=== PATIENT | female | born 1995 ===

== ENCOUNTER 2019-05-22 21:37 | Emergency (ER) | payer SELFPAY ==
--- NOTE | 2019-05-22 22:46 | EDM.PDOC ---
ED HPI GENERAL MEDICAL PROBLEM - General Chief Complaint: General Stated Complaint: SICK Time Seen by Provider: 05/22/19 22:40 Source of Information: Reports: Patient History Limitations: Reports: No Limitations - History of Present Illness INITIAL COMMENTS - FREE TEXT/NARRATIVE: Patient concern about her boyfriend's penile bleeding. Patient does not know whether she was bleeding and wants a discussion. Onset: Today Duration: Hour(s): Location: Reports: Other Improves with: Reports: None Worsens with: Reports: None Associated Symptoms: Reports: No Other Symptoms - Related Data Allergies Allergy/AdvReac Type Severity Reaction Status Date / Time No Known Allergies Allergy Verified 05/22/19 22:04 Home Meds: Home Meds . 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 Musculoskeletal History: Reports: None Neurological History: Reports: None Psychiatric History: Reports: None Endocrine/Metabolic History: Reports: None Hematologic History: Reports: None Immunologic History: Reports: None Oncologic (Cancer) History: Reports: None Dermatologic History: Reports: None - Infectious Disease History Infectious Disease History: Reports: None - Past Surgical History Head Surgeries/Procedures: Reports: None Social & Family History - Tobacco Use Smoking Status *Q: Never Smoker Second Hand Smoke Exposure: No - Caffeine Use Caffeine Use: Reports: None - Recreational Drug Use Recreational Drug Use: No ED ROS GENERAL - Review of Systems Review Of Systems: See Below Constitutional: Reports: No Symptoms HEENT: Reports: No Symptoms Respiratory: Reports: No Symptoms Cardiovascular: Reports: No Symptoms Endocrine: Reports: No Symptoms GI/Abdominal: Reports: No Symptoms : Reports: No Symptoms Musculoskeletal: Reports: No Symptoms Skin: Reports: No Symptoms Neurological: Reports: No Symptoms Psychiatric: Reports: No Symptoms Hematologic/Lymphatic: Reports: No Symptoms Immunologic: Reports: No Symptoms ED EXAM, GENERAL - Physical Exam Exam: See Below Free Text/Narrative:: Have discussed the case with the patient patient is not bleeding. Her boyfriend was bleeding and I have discussed this with her. Exam Limited By: No Limitations General Appearance: Alert, WD/WN, No Apparent Distress Ears: Normal External Exam, Normal TMs Nose: Normal Inspection Throat/Mouth: Normal Inspection Head: Atraumatic Respiratory/Chest: No Respiratory Distress Cardiovascular: Normal Peripheral Pulses, No JVD (Female) Exam: Other (No reason to examine patient.) Course - Vital Signs Text/Narrative:: No treatment needed at this time. Last Recorded V/S: Last Vital Signs Temp 97.8 F 05/22/19 22:00 Pulse 70 05/22/19 22:00 Resp 18 05/22/19 22:00 BP 120/70 05/22/19 22:00 Pulse Ox 97 05/22/19 22:00 Departure - Departure Time of Disposition: 22:47 Disposition: Home, Self-Care 01 Condition: Good Clinical Impression: Exposure to blood or body fluid - Discharge Information Referrals: PCP,None [Primary Care Provider] - Sepsis Event Note - Evaluation Sepsis Screening Result: No Definite Risk - Focused Exam Vital Signs: Vital Signs Temp Pulse Resp BP Pulse Ox 05/22/19 22:00 97.8 F 70 18 120/70 97 Date Exam was Performed: 05/22/19 Time Exam was Performed: 22:40
== END 2019-05-22 23:00 | disposition home or self-care (01) ==
LOC: MW.ED 21:37
DX: Z77.21 Contact with and (suspected) exposure to potentially hazardous body fluids (principal)
CPT/HCPCS: 99283

== ENCOUNTER 2020-03-10 12:44 | Inpatient (IN) | payer SELFPAY ==
[2020-03-10] MEDS ORDERED: Misoprostol 200 MCG Tab PO PRN (12:53)
[2020-03-10] MEDS ORDERED: Sodium Chloride 0.9% 10 ML Syringe FLUSH PRN (12:53)
[2020-03-10] MEDS ORDERED: Sodium Chloride 0.9% 2.5 ML Syringe FLUSH PRN (12:53)
[2020-03-10] MEDS ORDERED: Sodium Chloride 0.9% 10 ML SDV IV PRN (12:53)
[2020-03-10] MEDS ORDERED: Lidocaine 1% 50 ML MDV INJECT PRN (12:53)
[2020-03-10] MEDS ORDERED: Nalbuphine 10 MG/1 ML Vial IVPUSH PRN (12:53)
[2020-03-10] MEDS ORDERED: Carboprost Tromethamine 250 MCG/1 ML Amp IM PRN (12:53)
[2020-03-10] MEDS ORDERED: Water For Irrigation,Sterile 1,000 ML Container IRR PRN (12:53)
[2020-03-10] MEDS ORDERED: Methylergonovine 0.2 MG/1 ML Amp IM PRN (12:53)
[2020-03-10] MEDS ORDERED: Tranexamic Acid 1,000 MG in Sodium Chloride 0.9% 100 ML IV PRN (12:53)
[2020-03-10] MEDS ORDERED: Butorphanol 1 MG/ML SDV IVPUSH PRN (12:53)
[2020-03-10] MEDS ORDERED: Lactated Ringers 1,000 ML IV SCH (13:00)
[2020-03-10] MEDS ORDERED: Oxytocin/0.9 % Sodium Chloride 30 UNIT/500 ML BAG IV SCH ×2 (13:00→13:15)
[2020-03-10] MEDS ORDERED: Misoprostol 25 MCG (1/4 of 100 MCG) Tab VAG PRN ×2 (13:01)
[2020-03-10] MEDS ORDERED: Terbutaline 1 MG/ML SDV SUBCUT PRN (13:01)
[2020-03-10] MEDS ORDERED: Misoprostol 25 MCG (1/4 of 100 MCG) Tab PO ONE (13:03)
--- NOTE | 2020-03-10 16:40 | PCM.LDHP ---
L&D History of Present Illness - General Date of Service: 03/10/20 Admit Problem/Dx: Patient Status Order with Admit Dx/Problem 03/10/20 12:53 Patient Status [ADT] Routine Admission Diagnosis/Problem Admission Diagnosis/Problem 03/10/20 16:35 presenting to L&D for elective IOL at 40 1/7 weeks (CECILIO: 03/09/20); O+, Rubella immune, GBS negative; vertex presentation by Radu'charlee SVE 2-3cm/50%/- 3, soft midposition per nurse report Source of Information: Patient History Limitations: Reports: No Limitations - Related Data Allergies/Adverse Reactions: Allergies Allergy/AdvReac Type Severity Reaction Status Date / Time No Known Allergies Allergy Verified 03/08/20 10:11 Home Medications: Home Meds . 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: Musculoskeletal History: Reports: None Neurological History: Reports: None Psychiatric History: Reports: None Endocrine/Metabolic History: Reports: None Hematologic History: Reports: None Immunologic History: Reports: None Oncologic (Cancer) History: Reports: None Dermatologic History: Reports: None - Infectious Disease History Infectious Disease History: Reports: Chicken Pox - Past Surgical History Head Surgeries/Procedures: Reports: None Social & Family History - Family History HEENT: Reports: Hearing Impairment Cardiac: Reports: None Respiratory: Reports: Asthma GI: Reports: None OBGYN: Reports: Musculoskeletal: Reports: None Neurological: Reports: None Psychiatric: Reports: None Endocrine/Metabolic: Reports: Diabetes, type II Hematologic: Reports: None Oncologic: Reports: None - Tobacco Use Tobacco Use Status *Q: Never Tobacco User Second Hand Smoke Exposure: No - Caffeine Use Caffeine Use: Reports: None - Recreational Drug Use Recreational Drug Use: No H&P Review of Systems - Review of Systems: Review Of Systems: See Below General: Reports: No Symptoms HEENT: Reports: No Symptoms Pulmonary: Reports: No Symptoms Cardiovascular: Reports: No Symptoms Gastrointestinal: Reports: No Symptoms Genitourinary: Reports: No Symptoms Musculoskeletal: Reports: No Symptoms Skin: Reports: No Symptoms Psychiatric: Reports: No Symptoms Neurological: Reports: No Symptoms Hematologic/Lymphatic: Reports: No Symptoms Immunologic: Reports: No Symptoms L&D Exam - Exam Exam: See Below - Vital Signs Weight: 185 lb - OB Specific Movement: Active Heart Tones: Present Heart Rate (FHR) Variability: Moderate (6-25 bmp) Presentation: Vertex - Dia Score Dia Score Cervix Position: Midposition Dia Score Consistency: Soft Dia Score Effacement: 31-50% Dia Score Dilation: 1-2 cm Dia Score 's Station: -3 Dia Score Total: 5 - Exam General: Alert, Oriented, Cooperative Lungs: Normal Respiratory Effort Cardiovascular: Regular Rate, Regular Rhythm GI/Abdominal Exam: Soft, Non-Tender Rectal Exam: Deferred Genitourinary: Deferred Back Exam: Normal Inspection Extremities: Normal Inspection, Normal Range of Motion, Non-Tender, Normal Capillary Refill Skin: Warm, Dry, Intact Neurological: Strength Equal Bilateral, Normal Gait, Normal Speech, Normal Tone, Sensation Intact Psychiatric: Alert, Normal Affect, Normal Mood - Patient Data Lab Results Last 24 hrs: Laboratory Results - last 24 hr 03/10/20 03/10/20 Range/Units 13:20 13:20 WBC 10.43 (4.0-11.0) K/uL RBC 4.04 L (4.30-5.90) M/uL Hgb 10.9 L (12.0-16.0) g/dL Hct 34.0 L (36.0-46.0) % MCV 84.2 (80.0-98.0) fL MCH 27.0 (27.0-32.0) pg MCHC 32.1 (31.0-37.0) g/dL RDW Std Deviation 37.5 (28.0-62.0) fl RDW Coeff of Chi 12 (11.0-15.0) % Plt Count 186 (150-400) K/uL MPV 12.60 H (7.40-12.00) fL Nucleated RBC % 0.0 /100WBC Nucleated RBCs # 0 K/uL Blood Type O POSITIVE Antibody Screen NEGATIVE Result Diagrams: 03/10/20 13:20 - Problem List (1) Supervision of normal IUP (intrauterine ) in multigravida SNOMED Code(s): 556978649, 563772082, 285811039 ICD Code: Z34.80 - ENCOUNTER FOR SUPRVSN OF NORMAL , UNSP TRIMESTER Status: Acute Priority: High Current Visit: Yes Qualifiers: Trimester: third trimester Qualified Code(s): Z34.83 - Encounter for supervision of other normal , third trimester Problem List Initiated/Reviewed/Updated: Yes Orders Last 24hrs: Active Orders 24 hr Category Date Time Status Patient Status [ADT] Routine ADT 03/10/20 12:53 Active Bedrest Bathroom Privileges [RC] ASDIRECTED Care 03/10/20 13:02 Active Communication Order [RC] ASDIRECTED Care 03/10/20 13:02 Active Communication Order [RC] ASDIRECTED Care 03/10/20 13:02 Active Communication Order [RC] ASDIRECTED Care 03/10/20 13:02 Active Heart Tones [RC] CONTINUOUS Care 03/10/20 12:53 Active Non Stress Test [RC] PER UNIT ROUTINE Care 03/10/20 12:53 Active May Shower [RC] ASDIRECTED Care 03/10/20 12:53 Active Notify Provider [RC] PRN Care 03/10/20 12:53 Active Notify Provider [RC] PRN Care 03/10/20 13:02 Active Notify Provider [RC] PRN Care 03/10/20 13:02 Active Notify Provider [RC] STAT Care 03/10/20 13:02 Active Up ad Zita [RC] ASDIRECTED Care 03/10/20 12:53 Active Vaginal Exam [RC] PRN Care 03/10/20 12:53 Active Vaginal Exam [RC] PRN Care 03/10/20 13:02 Active Vital Signs [RC] PER UNIT ROUTINE Care 03/10/20 12:53 Active Regular Diet [DIET] Diet 03/10/20 Lunch Active RPR (SYPHILIS SERO) W/ RFLX [REF] Routine Lab 03/10/20 13:20 Received Butorphanol [Stadol] Med 03/10/20 12:53 Active 1 mg IVPUSH Q1H PRN Carboprost Tromethamine [Hemabate DS] Med 03/10/20 12:53 Active 250 mcg IM ASDIRECTED PRN Lactated Ringers [Ringers, Lactated] 1,000 ml Med 03/10/20 13:00 Active IV ASDIRECTED Lidocaine 1% [Xylocaine 1%] Med 03/10/20 12:53 Active 50 ml INJECT ONETIME PRN Methylergonovine [Methergine] Med 03/10/20 12:53 Active 0.2 mg IM ASDIRECTED PRN Nalbuphine [Nubain] Med 03/10/20 12:53 Active 10 mg IVPUSH Q1H PRN Oxytocin/0.9 % Sodium Chloride [Oxytocin 30 Unit/500 ML Med 03/10/20 13:00 Active -NS] 30 unit in 500 ml IV TITRATE Oxytocin/0.9 % Sodium Chloride [Oxytocin 30 Unit/500 ML Med 03/10/20 13:15 Active -NS] 30 unit in 500 ml IV TITRATE Sodium Chloride 0.9% [Normal Saline] Med 03/10/20 12:53 Active 10 ml IV ASDIRECTED PRN Sodium Chloride 0.9% [Saline Flush] Med 03/10/20 12:53 Active 10 ml FLUSH ASDIRECTED PRN Sodium Chloride 0.9% [Saline Flush] Med 03/10/20 12:53 Active 2.5 ml FLUSH ASDIRECTED PRN Terbutaline [Brethine] Med 03/10/20 13:01 Active 0.25 mg SUBCUT ASDIRECTED PRN Tranexamic Acid [Cyklokapron] 1,000 mg Med 03/10/20 12:53 Active Sodium Chloride 0.9% [Normal Saline] 100 ml IV ONETIME Water For Irrigation,Sterile [Sterile Water for Med 03/10/20 12:53 Active Irrigation] 1,000 ml IRR ASDIRECTED PRN miSOPROStoL [Cytotec] Med 03/10/20 12:53 Active 200 mcg PO ONETIME PRN miSOPROStoL [Cytotec] Med 03/10/20 13:01 Active 25 mcg VAG ONETIME PRN miSOPROStoL [Cytotec] Med 03/10/20 13:01 Active 25 mcg VAG Q4H PRN Scalp Electrode [WOMSER] Per Unit Routine Oth 03/10/20 12:53 Ordered Medication Administration Instruction [OM.PC] Q3H Oth 03/10/20 13:15 Ordered Peripheral IV Insertion Adult [OM.PC] Routine Oth 03/10/20 12:53 Ordered Resuscitation Status Routine Resus Stat 03/10/20 12:53 Ordered Medication Orders Butorphanol Tartrate (Stadol) 1 mg IVPUSH Q1H PRN PRN Reason: Pain Carboprost Tromethamine (Hemabate Ds) 250 mcg IM ASDIRECTED PRN PRN Reason: Post Hemorrhage Oxytocin/Sodium Chloride (Oxytocin 30 Unit/500 Ml-Ns) 30 unit in 500 mls @ 500 mls/hr IV TITRATE JOSH Tranexamic Acid 1,000 mg/ (Sodium Chloride) 110 mls @ 660 mls/hr IV ONETIME PRN PRN Reason: Bleeding Lactated Ringer's (Ringers, Lactated) 1,000 mls @ 150 mls/hr IV ASDIRECTED JOSH Oxytocin/Sodium Chloride (Oxytocin 30 Unit/500 Ml-Ns) 30 unit in 500 mls @ 2 mls/hr IV TITRATE JOSH; Protocol Lidocaine HCl (Xylocaine 1%) 50 ml INJECT ONETIME PRN PRN Reason: Laceration repair Methylergonovine Maleate (Methergine) 0.2 mg IM ASDIRECTED PRN PRN Reason: Post Hemorrhage Misoprostol (Cytotec) 200 mcg PO ONETIME PRN PRN Reason: Post Hemorrhage Misoprostol (Cytotec) 25 mcg VAG ONETIME PRN PRN Reason: Cervical Ripening Last Admin: 03/10/20 13:42 Dose: 25 mcg Documented by: CELY Misoprostol (Cytotec) 25 mcg VAG Q4H PRN PRN Reason: Cervical Ripening Nalbuphine HCl (Nubain) 10 mg IVPUSH Q1H PRN PRN Reason: Pain (severe 7-10) Sodium Chloride (Saline Flush) 10 ml FLUSH ASDIRECTED PRN PRN Reason: Keep Vein Open Sodium Chloride (Saline Flush) 2.5 ml FLUSH ASDIRECTED PRN PRN Reason: Keep Vein Open Sodium Chloride (Normal Saline) 10 ml IV ASDIRECTED PRN PRN Reason: IV Use Sterile Water (Sterile Water For Irrigation) 1,000 ml IRR ASDIRECTED PRN PRN Reason: delivery Terbutaline Sulfate (Brethine) 0.25 mg SUBCUT ASDIRECTED PRN PRN Reason: Tacysystole Assessment/Plan Comment:: Admit A: presenting to L&D for elective IOL at 40 1/7 weeks (CECILIO: 03/09/20); O+, Rubella immune, GBS negative; vertex presentation by Radu's, SVE 2-3cm/50%/-3, soft midposition per nurse report; hx of fast labor P: Anticipate ; Epidural PRN; Dr. Carrasquillo updated.
--- NOTE | 2020-03-10 18:34 | PCM.DEL ---
L & D Note - General Info Date of Service: 03/10/20 Mother's Due Date: 03/09/20 - Delivery Note Cervical Ripening Method: Misoprostil Delivery Outcome: Livebirth Infant Delivery Method: Spontaneous Vaginal Delivery-Single Presentation: Vertex Nuchal Cord: None Anesthesia Type: None Laceration: None Placenta: Intact, Spontaneous Cord: 3 Vessels Estimated Blood Loss: 250 Resuscitation Needed: No Score 1 min: 8 Score 5 min: 9 Second Stage Interventions: Reports: Other (see below) (precipitous delivery) Delivery Comments (Free Text/Narrative):: AROM clear at 1629; SVE by this miller head wet process at that time was 4-5 cm/90%/-1, soft, and midposition; progressed to complete approximately 1.5 hours later and delivered precipitously in bed with nurse as this miller head wet process was en route to hospital; viable female; APGARs 8/9; weight 7 lb 14 oz; cord doubly clamped, cut by FOB at approximately 5 minutes ; placenta delivered grossly intact, mendoza; 3VC; EBL 250 mL; perineum intact; pitocin to IVF; mom and baby left in stable condition with nurse at bedside - General Info Date of Service: 03/10/20 Admission Dx/Problem (Free Text): Patient Status Order with Admit Dx/Problem 03/10/20 12:53 Patient Status [ADT] Routine Admission Diagnosis/Problem Admission Diagnosis/Problem 03/10/20 16:35 presenting to L&D for elective IOL at 40 1/7 weeks (CECILIO: 03/09/20); O+, Rubella immune, GBS negative; vertex presentation by Radu's, SVE 2-3cm/50%/-3, soft midposition per nurse report Functional Status: Reports: Pain Controlled - Review of Systems General: Reports: No Symptoms HEENT: Reports: No Symptoms Pulmonary: Reports: No Symptoms Cardiovascular: Reports: No Symptoms Gastrointestinal: Reports: No Symptoms Genitourinary: Reports: No Symptoms Musculoskeletal: Reports: No Symptoms Skin: Reports: No Symptoms Neurological: Reports: No Symptoms Psychiatric: Reports: No Symptoms - Patient Data Weight - Most Recent: 185 lb Lab Results Last 24 Hours: Laboratory Results - last 24 hr 03/10/20 03/10/20 Range/Units 13:20 13:20 WBC 10.43 (4.0-11.0) K/uL RBC 4.04 L (4.30-5.90) M/uL Hgb 10.9 L (12.0-16.0) g/dL Hct 34.0 L (36.0-46.0) % MCV 84.2 (80.0-98.0) fL MCH 27.0 (27.0-32.0) pg MCHC 32.1 (31.0-37.0) g/dL RDW Std Deviation 37.5 (28.0-62.0) fl RDW Coeff of Chi 12 (11.0-15.0) % Plt Count 186 (150-400) K/uL MPV 12.60 H (7.40-12.00) fL Nucleated RBC % 0.0 /100WBC Nucleated RBCs # 0 K/uL Blood Type O POSITIVE Antibody Screen NEGATIVE Med Orders - Current: Current Medications Butorphanol Tartrate (Stadol) 1 mg IVPUSH Q1H PRN PRN Reason: Pain Carboprost Tromethamine (Hemabate Ds) 250 mcg IM ASDIRECTED PRN PRN Reason: Post Hemorrhage Oxytocin/Sodium Chloride (Oxytocin 30 Unit/500 Ml-Ns) 30 unit in 500 mls @ 500 mls/hr IV TITRATE JOSH Tranexamic Acid 1,000 mg/ (Sodium Chloride) 110 mls @ 660 mls/hr IV ONETIME PRN PRN Reason: Bleeding Lactated Ringer's (Ringers, Lactated) 1,000 mls @ 150 mls/hr IV ASDIRECTED JOSH Oxytocin/Sodium Chloride (Oxytocin 30 Unit/500 Ml-Ns) 30 unit in 500 mls @ 2 mls/hr IV TITRATE JOSH; Protocol Lidocaine HCl (Xylocaine 1%) 50 ml INJECT ONETIME PRN PRN Reason: Laceration repair Methylergonovine Maleate (Methergine) 0.2 mg IM ASDIRECTED PRN PRN Reason: Post Hemorrhage Misoprostol (Cytotec) 200 mcg PO ONETIME PRN PRN Reason: Post Hemorrhage Misoprostol (Cytotec) 25 mcg VAG ONETIME PRN PRN Reason: Cervical Ripening Last Admin: 03/10/20 13:42 Dose: 25 mcg Documented by: Misoprostol (Cytotec) 25 mcg VAG Q4H PRN PRN Reason: Cervical Ripening Nalbuphine HCl (Nubain) 10 mg IVPUSH Q1H PRN PRN Reason: Pain (severe 7-10) Sodium Chloride (Saline Flush) 10 ml FLUSH ASDIRECTED PRN PRN Reason: Keep Vein Open Sodium Chloride (Saline Flush) 2.5 ml FLUSH ASDIRECTED PRN PRN Reason: Keep Vein Open Sodium Chloride (Normal Saline) 10 ml IV ASDIRECTED PRN PRN Reason: IV Use Sterile Water (Sterile Water For Irrigation) 1,000 ml IRR ASDIRECTED PRN PRN Reason: delivery Terbutaline Sulfate (Brethine) 0.25 mg SUBCUT ASDIRECTED PRN PRN Reason: Tacysystole Discontinued Medications Misoprostol (Cytotec) 25 mcg PO ONETIME ONE Stop: 03/10/20 13:04 Last Admin: 03/10/20 13:41 Dose: 25 mcg Documented by: - Exam General: Alert, Oriented, Cooperative, No Acute Distress Lungs: Normal Respiratory Effort Cardiovascular: Regular Rate, Regular Rhythm GI/Abdominal Exam: Soft, Non-Tender (Female) Exam: Normal External Exam Back Exam: Normal Inspection, Full Range of Motion Extremities: Normal Inspection, Normal Range of Motion, Non-Tender, Normal Capillary Refill Skin: Warm, Dry, Intact Neurological: No New Focal Deficit, Normal Gait, Normal Speech, Normal Tone, Strength Equal Bilateral, Sensation Intact Psy/Mental Status: Alert, Normal Affect, Normal Mood - Problem List & Annotations (1) Supervision of normal IUP (intrauterine ) in multigravida SNOMED Code(s): 530841749, 281721874, 500384274 Code(s): Z34.80 - ENCOUNTER FOR SUPRVSN OF NORMAL , UNSP TRIMESTER Status: Acute Priority: High Current Visit: Yes Qualifiers: Trimester: third trimester Qualified Code(s): Z34.83 - Encounter for supervision of other normal , third trimester (2) (spontaneous vaginal delivery) SNOMED Code(s): 938275040 Code(s): O80 - ENCOUNTER FOR FULL-TERM UNCOMPLICATED DELIVERY Status: Acute Priority: High Current Visit: Yes - Problem List Review Problem List Initiated/Reviewed/Updated: No - My Orders Last 24 Hours: My Active Orders 03/10/20 Lunch Regular Diet [DIET] 03/10/20 12:53 Heart Tones [RC] CONTINUOUS Non Stress Test [RC] PER UNIT ROUTINE May Shower [RC] ASDIRECTED Notify Provider [RC] PRN Up ad Zita [RC] ASDIRECTED Vaginal Exam [RC] PRN Vital Signs [RC] PER UNIT ROUTINE Butorphanol [Stadol] 1 mg IVPUSH Q1H PRN Carboprost Tromethamine [Hemabate DS] 250 mcg IM ASDIRECTED PRN Lidocaine 1% [Xylocaine 1%] 50 ml INJECT ONETIME PRN Methylergonovine [Methergine] 0.2 mg IM ASDIRECTED PRN Nalbuphine [Nubain] 10 mg IVPUSH Q1H PRN Sodium Chloride 0.9% [Normal Saline] 10 ml IV ASDIRECTED PRN Sodium Chloride 0.9% [Saline Flush] 10 ml FLUSH ASDIRECTED PRN Sodium Chloride 0.9% [Saline Flush] 2.5 ml FLUSH ASDIRECTED PRN Tranexamic Acid [Cyklokapron] 1,000 mg Sodium Chloride 0.9% [Normal Saline] 100 ml IV ONETIME Water For Irrigation,Sterile [Sterile Water for Irrigation] 1,000 ml IRR ASDIRECTED PRN miSOPROStoL [Cytotec] 200 mcg PO ONETIME PRN Scalp Electrode [WOMSER] Per Unit Routine Peripheral IV Insertion Adult [OM.PC] Routine Resuscitation Status Routine 03/10/20 13:00 Lactated Ringers [Ringers, Lactated] 1,000 ml IV ASDIRECTED Oxytocin/0.9 % Sodium Chloride [Oxytocin 30 Unit/500 ML-NS] 30 unit in 500 ml IV TITRATE 03/10/20 13:01 Terbutaline [Brethine] 0.25 mg SUBCUT ASDIRECTED PRN miSOPROStoL [Cytotec] 25 mcg VAG ONETIME PRN miSOPROStoL [Cytotec] 25 mcg VAG Q4H PRN 03/10/20 13:02 Bedrest Bathroom Privileges [RC] ASDIRECTED Communication Order [RC] ASDIRECTED Communication Order [RC] ASDIRECTED Communication Order [RC] ASDIRECTED Notify Provider [RC] PRN Notify Provider [RC] PRN Notify Provider [RC] STAT Vaginal Exam [RC] PRN 03/10/20 13:15 Oxytocin/0.9 % Sodium Chloride [Oxytocin 30 Unit/500 ML-NS] 30 unit in 500 ml IV TITRATE Medication Administration Instruction [OM.PC] Q3H 03/10/20 13:20 RPR (SYPHILIS SERO) W/ RFLX [REF] Routine - Plan Plan:: Admit A: presenting to L&D for elective IOL at 40 1/7 weeks (CECILIO: 03/09/20); O+, Rubella immune, GBS negative; vertex presentation by Radu's, SVE 2-3cm/50%/-3, soft midposition per nurse report; hx of fast labor P: Anticipate ; Epidural PRN; Dr. Carrasquillo updated. Delivery A: viable femlae; delivered precipitously in bed with nurse as this miller head wet process was en route to hospital; APGARs 8/9; weight 7 lb 14 oz; cord doubly clamped, cut by FOB at approximately 5 minutes ; placenta delivered grossly intact, mendoza; 3VC; EBL 250 mL; perineum intact; pitocin to IVF; mom and baby left in stable condition with nurse at bedside P: Routine plan of care; Dr. Carrasquillo updated.
[2020-03-10] MEDS ORDERED: Witch Hazel Medicated Pads 40/Jar TOP PRN (18:37)
[2020-03-10] MEDS ORDERED: Bisacodyl 10 MG Supp RECTAL PRN (18:37)
[2020-03-10] MEDS ORDERED: Ibuprofen 800 MG Tab PO PRN (18:37)
[2020-03-10] MEDS ORDERED: Acetaminophen 500 MG Tab PO PRN ×2 (18:37)
[2020-03-10] MEDS ORDERED: Docusate Sodium 100 MG Cap PO PRN (18:37)
[2020-03-10] MEDS ORDERED: Benzocaine/Menthol 20%-0.5% Spray 78 GM Cannister TOP PRN (18:37)
[2020-03-10] MEDS ORDERED: Ibuprofen 400 MG Tab PO PRN (18:37)
[2020-03-10] MEDS ORDERED: oxyCODONE 5 MG Tab PO PRN (18:37)
[2020-03-10] MEDS ORDERED: Lanolin 100% Cream 7 GM Tube TOP PRN (18:37)
--- NOTE | 2020-03-11 10:08 | PCM.DCSUM1 ---
Discharge Summary - Hospital Course Free Text/Narrative:: Discharge home with ; follow up in the clinic in 6 weeks for routine visit; sooner, if needed. Diagnosis: Stroke: No Modified [place] Scale: No Symptoms at All Modified Brijesh Scale Score: 0 - Discharge Data Discharge Date: 03/11/20 Discharge Disposition: Home, Self-Care 01 Condition: Good - Referral to Home Health Primary Care Physician: PCP None - Discharge Diagnosis/Problem(s) (1) Supervision of normal IUP (intrauterine ) in multigravida SNOMED Code(s): 073530273, 712465270, 311650776 ICD Code: Z34.80 - ENCOUNTER FOR SUPRVSN OF NORMAL , UNSP TRIMESTER Status: Acute Priority: High Current Visit: Yes Qualifiers: Trimester: third trimester Qualified Code(s): Z34.83 - Encounter for supervision of other normal , third trimester (2) (spontaneous vaginal delivery) SNOMED Code(s): 316695245 ICD Code: O80 - ENCOUNTER FOR FULL-TERM UNCOMPLICATED DELIVERY Status: Acute Priority: High Current Visit: Yes - Patient Instructions Diet: Usual Diet as Tolerated, Regular Diet as Tolerated, Drink 8-10+ Glasses/Day Activity: As Tolerated, No Strenuous Activities, Rest and Relax Today Driving: May Drive Today Showering/Bathing: May Shower Notify Provider of: Fever, Increased Pain, Swelling and Redness, Drainage, Nausea and/or Vomiting - Discharge Plan *PRESCRIPTION DRUG MONITORING PROGRAM REVIEWED*: Not Applicable *COPY OF PRESCRIPTION DRUG MONITORING REPORT IN PATIENT REZA: Not Applicable Prescriptions/Med Rec: Lanolin [Lansinoh HPA] 1 tube TOP ASDIRECTED PRN #1 tube PRN Reason: Sore Nipples Ibuprofen [Motrin] 800 mg PO Q6H PRN #90 tablet PRN Reason: Pain Home Medications: Home Meds Ibuprofen [Motrin] 800 mg PO Q6H PRN #90 tablet 03/11/20 [Rx] Lanolin [Lansinoh HPA] 1 tube TOP ASDIRECTED PRN #1 tube 03/11/20 [Rx] Oxygen Therapy Mode: Room Air - Discharge Summary/Plan Comment DC Time >30 min.: Yes - General Info Date of Service: 03/11/20 Admission Dx/Problem (Free Text: Patient Status Order with Admit Dx/Problem 03/10/20 12:53 Patient Status [ADT] Routine Admission Diagnosis/Problem Admission Diagnosis/Problem 03/10/20 16:35 presenting to L&D for elective IOL at 40 1/7 weeks (CECILIO: 03/09/20); O+, Rubella immune, GBS negative; vertex presentation by [place], SVE 2-3cm/50%/-3, soft midposition per nurse report Functional Status: Reports: Pain Controlled, Tolerating Diet, Ambulating, Urinating - Review of Systems General: Reports: No Symptoms HEENT: Reports: No Symptoms Pulmonary: Reports: No Symptoms Cardiovascular: Reports: No Symptoms Gastrointestinal: Reports: No Symptoms Genitourinary: Reports: No Symptoms Musculoskeletal: Reports: No Symptoms Skin: Reports: No Symptoms Neurological: Reports: No Symptoms Psychiatric: Reports: No Symptoms - Patient Data Vitals - Most Recent: Last Vital Signs Temp 98.2 F 03/11/20 07:58 Pulse 73 03/11/20 07:58 Resp 15 03/11/20 07:58 BP 116/62 03/11/20 07:58 Pulse Ox 98 03/11/20 07:58 Weight - Most Recent: 185 lb Lab Results - Last 24 hrs: Laboratory Results - last 24 hr 03/10/20 03/10/20 03/11/20 Range/Units 13:20 13:20 06:15 WBC 10.43 (4.0-11.0) K/uL RBC 4.04 L (4.30-5.90) M/uL Hgb 10.9 L 10.9 L (12.0-16.0) g/dL Hct 34.0 L 33.2 L (36.0-46.0) % MCV 84.2 (80.0-98.0) fL MCH 27.0 (27.0-32.0) pg MCHC 32.1 (31.0-37.0) g/dL RDW Std Deviation 37.5 (28.0-62.0) fl RDW Coeff of Chi 12 (11.0-15.0) % Plt Count 186 (150-400) K/uL MPV 12.60 H (7.40-12.00) fL Nucleated RBC % 0.0 /100WBC Nucleated RBCs # 0 K/uL Blood Type O POSITIVE Antibody Screen NEGATIVE Med Orders - Current: Current Medications Acetaminophen (Tylenol Extra Strength) 500 mg PO Q4H PRN PRN Reason: Pain Acetaminophen (Tylenol Extra Strength) 1,000 mg PO Q4H PRN PRN Reason: Pain Benzocaine/Menthol (Dermoplast Pain Relief 20%-0.5% [place]) 78 gm TOP ASDIRECTED PRN PRN Reason: Perineal Comfort Measure Bisacodyl (Dulcolax) 10 mg RECTAL ONETIME PRN PRN Reason: Constipation Docusate Sodium (Colace) 100 mg PO BID PRN PRN Reason: Constipation Emollient Ointment (Lansinoh Hpa) 0 gm TOP ASDIRECTED PRN PRN Reason: Sore Nipples Ibuprofen (Motrin) 400 mg PO Q4H PRN PRN Reason: Pain Ibuprofen (Motrin) 800 mg PO Q6H PRN PRN Reason: Pain Oxycodone HCl (Oxycodone) 5 mg PO Q2H PRN PRN Reason: Pain Witch Maria Esther (Tucks) 1 pad TOP ASDIRECTED PRN PRN Reason: comfort care Discontinued Medications Butorphanol Tartrate (Stadol) 1 mg IVPUSH Q1H PRN PRN Reason: Pain Carboprost Tromethamine (Hemabate Ds) 250 mcg IM ASDIRECTED PRN PRN Reason: Post Hemorrhage Oxytocin/Sodium Chloride (Oxytocin 30 Unit/500 Ml-Ns) 30 unit in 500 mls @ 500 mls/hr IV TITRATE JOSH Tranexamic Acid 1,000 mg/ (Sodium Chloride) 110 mls @ 660 mls/hr IV ONETIME PRN PRN Reason: Bleeding Lactated Ringer's (Ringers, Lactated) 1,000 mls @ 150 mls/hr IV ASDIRECTED JOSH Oxytocin/Sodium Chloride (Oxytocin 30 Unit/500 Ml-Ns) 30 unit in 500 mls @ 2 mls/hr IV TITRATE JOSH; Protocol Lidocaine HCl (Xylocaine 1%) 50 ml INJECT ONETIME PRN PRN Reason: Laceration repair Methylergonovine Maleate (Methergine) 0.2 mg IM ASDIRECTED PRN PRN Reason: Post Hemorrhage Misoprostol (Cytotec) 200 mcg PO ONETIME PRN PRN Reason: Post Hemorrhage Misoprostol (Cytotec) 25 mcg VAG ONETIME PRN PRN Reason: Cervical Ripening Last Admin: 03/10/20 13:42 Dose: 25 mcg Documented by: Misoprostol (Cytotec) 25 mcg VAG Q4H PRN PRN Reason: Cervical Ripening Misoprostol (Cytotec) 25 mcg PO ONETIME ONE Stop: 03/10/20 13:04 Last Admin: 03/10/20 13:41 Dose: 25 mcg Documented by: Nalbuphine HCl (Nubain) 10 mg IVPUSH Q1H PRN PRN Reason: Pain (severe 7-10) Sodium Chloride (Saline Flush) 10 ml FLUSH ASDIRECTED PRN PRN Reason: Keep Vein Open Sodium Chloride (Saline Flush) 2.5 ml FLUSH ASDIRECTED PRN PRN Reason: Keep Vein Open Sodium Chloride (Normal Saline) 10 ml IV ASDIRECTED PRN PRN Reason: IV Use Sterile Water (Sterile Water For Irrigation) 1,000 ml IRR ASDIRECTED PRN PRN Reason: delivery Terbutaline Sulfate (Brethine) 0.25 mg SUBCUT ASDIRECTED PRN PRN Reason: Tacysystole - Exam General: Reports: Alert, Oriented, Cooperative, No Acute Distress Lungs: Reports: Normal Respiratory Effort Cardiovascular: Reports: Regular Rate, Regular Rhythm GI/Abdominal Exam: Soft, Non-Tender (Female) Exam: Deferred Rectal (Female) Exam: Deferred Back Exam: Reports: Normal Inspection, Full Range of Motion Extremities: Normal Inspection, Normal Range of Motion, Non-Tender, Normal Capillary Refill Skin: Reports: Warm, Dry, Intact Neurological: Reports: No New Focal Deficit, Normal Gait, Normal Speech, Normal Tone Psy/Mental Status: Reports: Alert, Normal Affect, Normal Mood
== END 2020-03-12 00:22 | disposition home or self-care (01) | DRG 807 ==
LOC: MW.OB 12:44 → OBSVTOIN 18:04 → MW.OB 18:04
PROVIDERS: ADMIT Obstetrics & Gynecology; ATTEND Obstetrics & Gynecology
PROC: 10E0XZZ Delivery of Products of Conception, External Approach (ICD-10-PCS; principal; 2020-03-10)
PROC: 3E0P7VZ Introduction of Hormone into Female Reproductive, Via Natural or Artificial Opening (ICD-10-PCS; 2020-03-10)
PROC: 10907ZC Drainage of Amniotic Fluid, Therapeutic from Products of Conception, Via Natural or Artificial Opening (ICD-10-PCS; 2020-03-10)
DX: O62.3 Precipitate labor (principal); Z37.0 Single live birth; Z3A.40 40 weeks gestation of pregnancy
CPT/HCPCS: 36415; 59025; 59409; 85014; 85018; 85027; 86592; 86850; 86900; 86901; A9270-GY

== ENCOUNTER 2022-02-13 17:53 | Emergency (ER) | payer BC ==
[2022-02-13] MEDS ORDERED: Sodium Chloride 0.9% 10 ML Syringe FLUSH PRN (18:28)
[2022-02-13] MEDS ORDERED: Sodium Chloride 0.9% 2.5 ML Syringe FLUSH PRN (18:28)
[2022-02-13] MEDS ORDERED: Ondansetron 4 MG/2 ML SDV IVPUSH ONE (18:29)
[2022-02-13] MEDS ORDERED: Sodium Chloride 0.9% 1,000 ML IV ONE (18:29)
[2022-02-13 19:22] LABS: CARBON DIOXIDE,CO2 24.2 mmol/L (21.0-32.0); POTASSIUM,K 2.8 mmol/L (3.5-5.1)
[2022-02-13 19:31] LABS: CORONAVIRUS COVID-19 NAA NEGATIVE (NEGATIVE); INFLUENZA A NAA NEGATIVE (NEGATIVE); INFLUENZA B NAA NEGATIVE (NEGATIVE); RESPIRATORY SYNCYTIAL VIR NAA NEGATIVE (NEGATIVE)
[2022-02-13] MEDS ORDERED: Magnesium Sulfate/Water 2 GM in Premix Bag 1 BAG IV ONE (20:09)
[2022-02-13] MEDS ORDERED: Potassium Chloride 20 MEQ Tab.ER PO ONE (20:11)
== END 2022-02-13 22:21 | disposition home or self-care (01) ==
LOC: MW.ED 17:53
DX: O99.891 Other specified diseases and conditions complicating pregnancy (principal); R10.9 Unspecified abdominal pain; O21.9 Vomiting of pregnancy, unspecified; O99.282 Endocrine, nutritional and metabolic diseases complicating pregnancy, second trimester; E87.6 Hypokalemia; E83.42 Hypomagnesemia; Z20.822 Contact with and (suspected) exposure to COVID-19; Z3A.15 15 weeks gestation of pregnancy
CPT/HCPCS: 0241U; 36415; 76815; 80053; 81001; 83735; 84703; 85025; 96361; 96365; 96366; 96375; 99284; A9270; J2405; J3475; J3490; J7030

== ENCOUNTER 2022-07-19 00:02 | Inpatient (IN) | payer BC ==
[2022-07-19] MEDS ORDERED: Sodium Chloride 0.9% 20 ML SDV IV PRN (00:53)
[2022-07-19] MEDS ORDERED: Sodium Chloride 0.9% 10 ML Syringe FLUSH PRN (00:53)
[2022-07-19] MEDS ORDERED: Tranexamic Acid 1,000 MG in Sodium Chloride 0.9% 100 ML IV PRN (00:53)
[2022-07-19] MEDS ORDERED: Methylergonovine 0.2 MG/1 ML Amp IM PRN (00:53)
[2022-07-19] MEDS ORDERED: Water For Irrigation,Sterile 1,000 ML Container IRR PRN (00:53)
[2022-07-19] MEDS ORDERED: Ondansetron 4 MG/2 ML SDV IVPUSH PRN (00:53)
[2022-07-19] MEDS ORDERED: Carboprost Tromethamine 250 MCG/1 ML Amp IM PRN (00:53)
[2022-07-19] MEDS ORDERED: Terbutaline 1 MG/ML SDV SUBCUT PRN (00:53)
[2022-07-19] MEDS ORDERED: Lidocaine 1% 50 ML MDV INJECT PRN (00:53)
[2022-07-19] MEDS ORDERED: Misoprostol 200 MCG Tab PO PRN (00:53)
[2022-07-19] MEDS ORDERED: Sodium Chloride 0.9% 2.5 ML Syringe FLUSH PRN (00:53)
[2022-07-19] MEDS ORDERED: Lactated Ringers 1,000 ML IV SCH (01:00)
[2022-07-19] MEDS ORDERED: Oxytocin/0.9 % Sodium Chloride 30 UNIT/500 ML BAG IV SCH ×2 (01:00)
[2022-07-19] MEDS ORDERED: Misoprostol 25 MCG (1/4 of 100 MCG) Tab PO PRN ×2 (01:00→05:00)
[2022-07-19] MEDS ORDERED: Misoprostol 25 MCG (1/4 of 100 MCG) Tab VAG PRN ×2 (01:00→05:00)
[2022-07-19] MEDS ORDERED: Nalbuphine HCl 10 MG/ 1ML Amp IVPUSH PRN (01:00)
[2022-07-19] MEDS: Acetaminophen 500 MG Tab PO PRN ×2 (04:08→10:26)
[2022-07-19] MEDS ORDERED: Bupivacaine 0.5% 10 ML SDV ONE (11:31)
[2022-07-19] MEDS ORDERED: Ropivacaine/PF 400 MG/200 ML PCA ONE (11:31)
[2022-07-19] MEDS ORDERED: Witch Hazel Medicated Pads 40/Jar TOP PRN (12:01)
[2022-07-19] MEDS ORDERED: Acetaminophen 500 MG Tab PO PRN ×2 (12:01)
[2022-07-19] MEDS ORDERED: Benzocaine/Menthol 20%-0.5% Spray 78 GM Cannister TOP PRN (12:01)
[2022-07-19] MEDS ORDERED: oxyCODONE 5 MG Tab PO PRN (12:01)
[2022-07-19] MEDS ORDERED: Ibuprofen 400 MG Tab PO PRN (12:01)
[2022-07-19] MEDS ORDERED: Bisacodyl 10 MG Supp RECTAL PRN (12:01)
[2022-07-19] MEDS ORDERED: Lanolin 100% Cream 7 GM Tube TOP PRN (12:01)
[2022-07-19] MEDS ORDERED: Docusate Sodium 100 MG Cap PO PRN (12:01)
[2022-07-19] MEDS: Ibuprofen 800 MG Tab PO PRN (17:32)
[2022-07-20] MEDS: Ibuprofen 800 MG Tab PO PRN (06:21)
== END 2022-07-20 15:15 | disposition home or self-care (01) | DRG 560 ==
LOC: MW.OBCHECK 00:02 → MW.OB 00:05 → MW.OBCHECK 00:54 → OBSVTOIN 12:01 → MW.OB 16:04
PROVIDERS: ADMIT Obstetrics & Gynecology; ATTEND Obstetrics & Gynecology
PROC: 10E0XZZ Delivery of Products of Conception, External Approach (ICD-10-PCS; principal; 2022-07-19)
PROC: 10907ZC Drainage of Amniotic Fluid, Therapeutic from Products of Conception, Via Natural or Artificial Opening (ICD-10-PCS; 2022-07-19)
PROC: 3E033VJ Introduction of Other Hormone into Peripheral Vein, Percutaneous Approach (ICD-10-PCS; 2022-07-19)
PROC: 3E0P7VZ Introduction of Hormone into Female Reproductive, Via Natural or Artificial Opening (ICD-10-PCS; 2022-07-19)
DX: O80 Encounter for full-term uncomplicated delivery (principal); Z37.0 Single live birth; Z3A.39 39 weeks gestation of pregnancy
CPT/HCPCS: 36415; 59025; 59409; 85014; 85018; 85027; 86592; 86850; 86900; 86901; A9270-GY; J2300; J2405; J2590; J2795; J3490; J7120

== ENCOUNTER 2022-12-15 13:26 | Emergency (ER) | payer BC, OTHER ==
[2022-12-15] MEDS ORDERED: Morphine 4 MG/ML Syringe IVPUSH ONE (13:39)
[2022-12-15] MEDS ORDERED: Sodium Chloride 0.9% 1,000 ML IV ONE (13:40)
[2022-12-15] MEDS ORDERED: Ondansetron 4 MG/2 ML SDV IVPUSH ONE (13:40)
[2022-12-15] MEDS ORDERED: Lidocaine 2% Viscous Solution 15 ML UD PO ONE (13:45)
[2022-12-15] MEDS ORDERED: Aluminum Hydroxide/Magnesium Hydroxide/Simethicone XS Susp 30 ML Cup PO ONE (13:45)
[2022-12-15 13:52] LABS: BASOPHILS ABSOLUTE AUTO 0.1 K/uL (0.0-0.1); BASOPHILS PERCENT AUTO 0.5 % (0.0-1.5); EOSINOPHILS ABSOLUTE AUTO 0.4 K/uL (0.0-0.7); EOSINOPHILS PERCENT AUTO 3.7 % (0.0-7.0); HEMATOCRIT 39.1 % (36.0-46.0); HEMOGLOBIN 12.8 g/dL (12.0-16.0); LYMPHOCYTES ABSOLUTE AUTO 5.2 K/uL (0.6-2.4); LYMPHOCYTES PERCENT AUTO 45.9 % (16.0-40.0); MEAN CORPUSCULAR HEMOGLOBIN 27.1 pg (27.0-32.0); MEAN CORPUSCULAR HGB CONC 32.7 g/dL (31.0-37.0); MEAN CORPUSCULAR VOLUME 82.7 fL (80.0-98.0); MONOCYTES ABSOLUTE AUTO 0.7 K/uL (0.0-0.8); MONOCYTES PERCENT AUTO 6.4 % (0.0-15.0); NEUTROPHILS PERCENT AUTO 43.5 % (48.0-80.0); NRBC ABSOLUTE 0 K/uL; PLATELET COUNT,PLT 342 K/uL (150-400); RED BLOOD CELL COUNT 4.73 M/uL (4.30-5.90); WHITE BLOOD CELL COUNT,WBC 11.39 K/uL (4.0-11.0)
[2022-12-15 14:04] LABS: A/G RATIO 1.1 (0.9-1.6); BILIRUBIN TOTAL 0.3 mg/dL (0.2-1.0); CALCIUM 8.2 mg/dL (8.5-10.1); CARBON DIOXIDE,CO2 24.9 mmol/L (21.0-32.0); CREATININE 0.6 mg/dL (0.6-1.0); EST CRCL DRUG DOSING (CG) 121.62 mL/min; POTASSIUM,K 3.1 mmol/L (3.5-5.1); PROTEIN TOTAL,TP 7.8 g/dL (6.4-8.2)
[2022-12-15 14:39] LABS: APPEARANCE,URINE CLEAR; BILIRUBIN,URINE NEGATIVE (NEGATIVE); COLOR,URINE YELLOW; GLUCOSE,URINE NEGATIVE (NEGATIVE); KETONES,URINE NEGATIVE (NEGATIVE); LEUKOCYTE ESTERASE,URINE NEGATIVE (NEGATIVE); NITRITE,URINE NEGATIVE (NEGATIVE); OCCULT BLOOD,URINE SMALL (NEGATIVE); PH,URINE 5.5 (5.0-8.0); PROTEIN,URINE NEGATIVE (NEGATIVE); UROBILINOGEN,URINE 0.2 EU/dL (<2.0)
[2022-12-15 14:46] LABS: BACTERIA,URINE FEW (NEGATIVE); EPITHELIAL CELLS,URINE FEW (NONE-FEW); RBC,URINE 0-3 (0-2/HPF); WBC,URINE 0-1 (0-5/HPF)
== END 2022-12-15 15:12 | disposition home or self-care (01) ==
LOC: MW.ED 13:26
DX: K21.9 Gastro-esophageal reflux disease without esophagitis (principal); Z86.16 Personal history of COVID-19
CPT/HCPCS: 36415; 80053; 81001; 83690; 85025; 93005; 96361; 96374; 96375; 99284; A9270; J2270; J2405; J7030; 93010